=== PATIENT | male | born 1930 | race Caucasian/White ===

== ENCOUNTER 2017-01-11 06:49 | Day surgery (SDC) | payer OTHER ==
[~2017-01-11] VITALS: Ht 180.3 cm; Wt 83.5 kg
--- NOTE | ~2017-01-11 | S ---
[facility] [place] [address] SURGICAL PATH RPT PROCEDURE Name: JANINE GALEANO Room #: DEP [facility]..#: [id number] Admission: 01/11/17 Date of : [birth year] Discharge: 01/11/17 Report #: [id number] Path Case #: [id number] PATHOLOGY REPORT COLLECTION DATE: 01/11/2017 RECEIVED DATE: 01/11/2017 SUBMITTING PHYS: Dr. Robbin Rodriguez OTHER PHYS: SPECIMEN(S) RECEIVED: A.Left lower lid tumor new margin up B.Left lower lid tumor medial margin C.Left lower lid tumor lateral lesion * * * * * * * * * * * * FINAL DIAGNOSIS: A. Skin, left lower lid tumor, excision: - BASAL CELL CARCINOMA. - Appears completely excised (margins free of malignancy). B. Skin, left lower lid tumor medial margin, excision: - Negative for malignancy. C. Skin, left lower lid tumor lateral, excision: - Negative for malignancy. (IUV:pit; 01/15/2017) PATHOLOGIST: Nakia Ceron M.D. REPORT ELECTRONICALLY SIGNED BY: Nakia Ceron M.D. DATE/TIME: 01/15/2017 16:18 * * * * * * * * * * * * GROSS PATHOLOGY: A. Part A is received fresh from the OR labeled with the patient's name and "left lower lid tumor new margin up". The specimen consists of a pink-west eyelid measuring 1.5 x 0.7 x 0.7 cm. On the surface of the eyelid is a brown nodular surface. The specimen is inked as follows: medial-black, lateral-blue, and inferior-green. The remainder of this specimen is to be grossed by the PA's and entirely submitted. The specimen is bisected in the medial-lateral plane. Yellow ink is applied to the cut surfaces and embedded down. Totally submitted as A1. B. The specimen is received fresh from the OR labeled with the patient's name and "left lower lid tumor medial margin". The specimen consists of a single piece of red-pink soft tissue measuring 0.7 x 0.5 x 0.3 cm. The specimen is entirely submitted en face for frozen section. The specimen is entirely submitted in cassette B1. [address] [address] SURGICAL PATH RPT PROCEDURE Name: JANINE GALEANO Room #: DEP [facility].#: [id number] Admission: 01/11/17 Date of : [birth year] Discharge: 01/11/17 Report #: [id number] Path Case #: [id number] C. The specimen is received fresh from the OR for frozen section and labeled with the patient's name and "left lower lid tumor lateral". The specimen consists of a single piece of red-pink soft tissue measuring 0.8 x 0.4 x 0.3 cm. The specimen is entirely submitted en face for frozen section in 1 cassette labeled C1. (MAP:[facility]; 01/11/2017) FROZEN SECTION DIAGNOSIS: B. Left lower lid tumor medial margin: - Negative for tumor. C. Left lower lid tumor lateral margin: - Negative for tumor. These results are discussed with Dr. Rodriguez at 12:03 p.m. on January 11, 2017. (MAP:[facility]; 01/11/2017) Testing performed by [employer] at [facility] [address], [place] [address] CLINICAL HISTORY: None Provided INITIAL CPT CODE(S): A; 49386 B; 46534, 63174 C; 34911, 92554 Professional services performed by [facility] at [facility] [address], [place] [address] Technical services performed by [employer] at [address] [place] [address], [facility] [address] [address]. [facility] [address] [place] [address] PHONE: [phone] DIRECTOR: Judah Daly M.D. * * * END OF REPORT * * *
--- NOTE | ~2017-01-11 | O ---
[facility] [place] [address] OPERATIVE REPORT Name: JANINE GALEANO Room #: 150-17 [facility] M.R.#: [id number] Admission: 01/11/17 Attend Phys: Robbin Rodriguez MD Discharge: Date of : [birth year] Report #: [id number] THIS REPORT FOR: //name// CC: Dr. Crow Yu [facility] DATE OF SERVICE: 01/11/2017 PREOPERATIVE DIAGNOSIS: Tumor of left lower lid. POSTOPERATIVE DIAGNOSIS: Tumor of left lower lid. PROCEDURE: Excision of tumor of left lower lid with frozen section, control of tumor extirpation, myocutaneous flap repair of defect with vascularized tarsoconjunctival flap from left upper lid to left lower lid and full thickness skin graft from right upper lid to left lower lid. SURGEON: Robbin Rodriguez MD GUEST SERVICE TEAM LEADER: None. ANESTHESIA: General. COMPLICATIONS: None. INDICATIONS FOR SURGERY: This pleasant 86-year-old gentleman has a nodular ulcerative mass encompassing the greater majority of his left lower lid. It appears to be a basal cell carcinoma. He presents today for excision of this tumor with frozen sections and subsequent reconstruction of that defect. Informed consent was obtained to include, but not limited to the potential risk for loss of vision, bleeding, infection, failure to improve the problem, the potential need for further surgery or treatment. He also understands that a stage reconstruction is most likely in this setting. DESCRIPTION OF PROCEDURE: The patient was taken to the operating room where 2% Xylocaine with epinephrine mixed with equal parts of 0.75% Marcaine with Wydase was administered transcutaneously and transconjunctivally to the left lower lid, the left cheek, the left lateral canthus, left infratemporal fossa, the left upper lid and the right upper lid. The patient was subsequently prepped and draped in the usual sterile fashion. A fine tip skin marking pen was then utilized to outline the lesion. The lesion was then excised with perpendicular incisions across the eyelid margin followed by horizontal incision down in the premalar space. This tumor was set aside as the main tumor body. Additional [address] [address] OPERATIVE REPORT Name: JANINE GALEANO Room #: 150-17 [facility]..#: [id number] Admission: 01/11/17 Attend Phys: Robbin Rodriguez MD Discharge: Date of : [birth year] Report #: [id number] specimens were taken medially and laterally with a Heraclio scissor and the new margin oriented up for the waiting pathologist. The pathologist snap froze that tissue and found that the margins were clear. Attention was then turned to repair of the defect. A myocutaneous flap was then developed laterally and rotated into position. Hemostasis was re-achieved. This corrected approximately the lateral 1/4 to 1/3 of the lid, but a considerable portion of the left lower lid still needed to be reconstructed. The left upper lid was then everted and an incision made 3.5 mm superior to the inferior border of the tarsal plate. A vascularized tarsoconjunctival flap was then developed from the left upper lid utilizing thin section techniques. The Dangelo's muscle was cleaned from the conjunctivae. This vascularized flap was then secured into the defect bed medially with interrupted 6-0 Vicryl sutures. It was secured laterally to the aforementioned rotated flap from the cheek, lateral canthus and infratemporal fossa with interrupted Vicryl sutures as well. It was secured to the lower lid retractors inferiorly with 6-0 Vicryl sutures. The residual defect in the right upper lid was then outlined with a fine tip skin marking pen. The incisions were then made with a Heraclio scissor and a skin muscle flap removed with high temp cautery. Hemostasis was achieved in the field with diligent pinpoint monopolar cautery. The upper lid crease was then reformed with interrupted 6-0 chromic sutures. That donor site was then closed with 6-0 plain gut sutures. The full thickness skin graft was then defatted and thinned. It was secured into the bed in the left lower lid with cardinal bites of 7-0 Vicryl suture. 6-0 plain gut sutures were used for the final closure. Erythromycin ointment was then placed on all the incisions. A Telfa pad was then placed on the left eye in a stacked manner to provide pressure over the full-thickness skin graft. A larger Telfa pad was then placed followed by 2 eye patches are held in place with silk tape and Mastisol. The patient was subsequently transported to the recovery area having tolerated the procedure well with no anesthetic or operative complications being noted. By: 1230 1430 Robbin Rodriguez MD /nt
[~2017-01-11 06:49] MED LIST: ANTIVERT25 MG PO; CARDIZEM CD 18180 M3 PO; CARDURA XL4 MG PO; CARDURA4 MG PO; COQ-10100 MG PO; COZAAR 25 MG TA25 M1 PO; FINASTERIDE5 MG PO; HYDROCHLOROTHIA25 M1 PO; LOVASTAT20 PO; MIRALAX255 GM PO; MULTI VITAMIN1 EACH PO; MULTIVITAMINS1 EAC7 PO; REQUIP0.5 MG PO; TUMS PO; VIAGRA100 MG PO
[2017-01-11 10:56] VITALS: BP 183/96
== END 2017-01-11 13:46 | disposition home or self-care (01) ==
LOC: OR 06:49 → TBA 06:49 → OR 08:27
DX: C44.119 Basal cell carcinoma of skin of left eyelid, including canthus (principal); I10 Essential (primary) hypertension; E78.5 Hyperlipidemia, unspecified; Z98.890 Other specified postprocedural states
CPT/HCPCS: 50010; 50101; 50398; 51636; 56528; 56531; 62110; 62850; 70005